=== PATIENT | male | born 1960 | race Caucasian/White ===

== ENCOUNTER 2018-06-13 18:15 | Emergency (ER) | payer BC, SELFPAY ==
[2018-06-13 18:16] VITALS: BP 102/75; PULSE 90; RESP 16; TEMP 36.6; O2SAT 97; BMI 29.5
[2018-06-13 18:42] LABS: Red Blood Cells-Urine 0 SEEN /hpf (0-5); Squamous Epithelial Cells - UA 0 SEEN /hpf (0-5)
[2018-06-13 18:43] LABS: Color, Urine Yellow (Yellow); Glucose, Dipstick Normal (Normal); Ketone-Dipstick Negative (Negative); Leukocyte Esterase-Dipstick 500 /ul (Negative); Nitrite-Dipstick Negative (Negative); Occult Blood-Urine 25 /ul (Negative); Protein-Dipstick 15 mg/dl (Negative); Specific Gravity, Urine 1.015 (1.002-1.030); Urine Bilirubin Dipstick Negative (Negative); Urine Clarity Clear (Clear); Urine Urobilinogen Normal (Normal)
--- NOTE | 2018-06-13 18:43 | ED.DCSUM_ITS ---
- ER Visit Summary Date of Service: 06/13/18 Chief Complaint: Dysuria History of Present Illness: The patient is a 58 M presents to the emergency department with 4 days of dysuria. Patient symptoms began on Sunday. He states that he had some urinary hesitancy and some frequency. He states since then, he has had increasing burning, low-grade fever, and the sensation that he is unable to fully empty his bladder. Patient is otherwise healthy. He only takes antidepressants. He has no history of abdominal surgery. He states that years ago, he had prostatitis, but at that time he was having a lot more pain in his rectal area and pain when he sits down. He states this feels different. Physical Examination: Vital signs reviewed General: Well-nourished, well-developed Head: Normocephalic, atraumatic Eyes: Pupils equal and reactive, extraocular muscles intact Neck, supple, no lymphadenopathy Heart: Regular rate and rhythm Respiratory: No distress, clear bilaterally Abdomen: Soft, nontender, nondistended, no peritoneal signs Back: Nontender Extremities: Nontender, no edema, no cords Skin: Normal color no rash Neuro: Alert and oriented, no focal or lateralizing deficits Test Results: [] Emergency Department Course and Treatment: Patient's vitals are normal. I did obtain a UA which shows evidence of definitive infection. Culture was added. The patient has no evidence of sepsis. I do feel that he is safe for outpatient therapy and he is agreeable. He is started on oral Cipro and will be continued on this pending results of the culture. He was counseled on concerning symptoms and reasons to return. He will be discharged home. Treatment Plan: [] Disposition: Discharge Impression: Acute cystitis This note was generated with [employer] dictation software. It may contain incorrect words, spelling, and punctuation that were not noted in review of the chart prior to signing ED Disposition - Plan for ED Patient: Disposition: Home or Assisted Living Chief Complaint: Complaint Instructions: ED UTI Cystitis Male Prescriptions: Ciprofloxacin [Cipro] 500 mg PO BID #14 tab Referrals: Kevin Cason III, MD [Primary Care Provider] -
[2018-06-13 19:03] LABS: Bacteria 2+ /hpf (None Seen); Mucous, Urine 1+ /hpf (<or=2+)
[2018-06-13 19:04] LABS: White Blood Cells 50-100 SEEN /hpf (0-5)
[2018-06-13] MEDS: Ciprofloxacin 500 MG Tablet PO (19:17)
[2018-06-13 19:39] VITALS: BP 168/86; PULSE 104; RESP 16; TEMP 36.9; O2SAT 98
== END 2018-06-13 19:42 | disposition home or self-care (01) ==
LOC: ED 18:36
PROVIDERS: Emergency Provider Emergency Medicine; Family Provider Family Medicine; PCP Family Medicine
DX: N30.00 Acute cystitis without hematuria (principal); F32.9 Major depressive disorder, single episode, unspecified; Z79.82 Long term (current) use of aspirin; Z79.899 Other long term (current) drug therapy
CPT/HCPCS: 81001; 87086; 87088; 87186; 99282